=== PATIENT | male | born 1950 | race Hispanic/Latino ===

== ENCOUNTER 2020-01-04 07:01 | Day surgery (SDC) | payer MEDICARE ==
[~2020-01-04 07:01] MED LIST: LIDOCAINE MPF (2%) 20 MG/1 ML VIAL 5 ML ONE; SODIUM CHLORIDE 0.9% 1000 ML 1,000 ML IV SCH
--- NOTE | 2020-01-04 08:09 | Anesthesia Consultation ---
Anesthesia Consult and Med Hx Date of service: 01/04/20 - Airway Anesthetic Teeth Evaluation: Good ROM Head & Neck: Adequate Mental/Hyoid Distance: Adequate Mallampati Class: Class II - Pre-Operative Health Status ASA Pre-Surgery Classification: ASA3 Proposed Anesthetic Plan: MAC - Pulmonary Hx Smoking: No Hx Asthma: No Hx Respiratory Symptoms: No SOB: Yes COPD: No Home Oxygen Therapy: No Hx Pneumonia: Yes Hx Sleep Apnea: No - Cardiovascular System Hx Hypertension: Yes Hx Coronary Artery Disease: Yes (CABG 2003) Hx Heart Attack/AMI: No Hx Angina: No Hx Percutaneous Transluminal Coronary Angioplasty (PTCA): No Hx Cardia Arrhythmia: No Hx Pacemaker: No Hx Internal Defibrillator: No Hx Valvular Heart Disease: No Hx Heart Murmur: No Hx Peripheral Vascular Disease: No - Central Nervous System Hx Neuromuscular Disorder: No Hx Seizures: No CVA: No Hx Back Pain: Yes (nerve stim placement in back) Hx Psychiatric Problems: No - Gastrointestinal Hx Ulcer: No Hx Gastroesophageal Reflux Disease: No - Endocrine Hx Renal Disease: No Hx End Stage Renal Disease: No Hx Cirrhosis: No Hx Liver Disease: No Hx Insulin Dependent Diabetes: No Hx Non-Insulin Dependent Diabetes: No Hx Thyroid Disease: No Hx Hypothyroidism: No Hx Hyperthyroidism: No - Hematic Hx Anemia: No Hx Sickle Cell Disease: No - Other Systems Hx Alcohol Use: Yes (occ.) Hx Substance Use: No Hx Cancer: No Hx Obesity: No
--- NOTE | 2020-01-04 08:10 | Anesthesia Day of Surgery ---
Anesthesia Day of Surgery - Day of Surgery Patient Examined: Yes Patient H&P Reviewed: Yes Patient is NPO: Yes
--- NOTE | 2020-01-04 08:37 | History and Physical Report ---
HISTORY OF PRESENT ILLNESS: This is a 69-year-old white male who has an underlying history of hypertension, status post CABG, who also has a prior history of colon polyps. His last colonoscopy was few years ago. He is being assessed for a repeat colonoscopy to be done. He is otherwise doing well. MEDICATIONS: He is on multiple medications including Welchol, carvedilol, lisinopril, Zetia, amlodipine, Crestor, and gabapentin. ALLERGIES: HAS A HISTORY OF ALLERGY TO ALBUTEROL AND NAPROXEN. SOCIAL HISTORY: Denies history of smoking, alcohol, does have some cardiac issues. He has had his flu shots. PAST MEDICAL HISTORY: Significant for hypertension, coronary artery disease, status post CABG, hyperlipidemia and history of hemorrhoids. PHYSICAL EXAMINATION: GENERAL: He is afebrile. VITAL SIGNS: Blood pressure is 131/85, pulse is 66, height is 5 feet 6 inches, weight is 177 pounds. HEENT: Shows no JVD. LUNGS: Clear to auscultation. CARDIOVASCULAR: Normal. ABDOMEN: Soft. Bowel sounds present. NEUROLOGIC: He is alert and oriented. ASSESSMENT: Colon polyp screening, past history of colon polyps, hypertension, status post CABG. PLAN: To do a colonoscopy at [facility] on 01/04/2020. The patient has been given the Suprep as the prep and he has got a cardiac clearance. JOB# [id number] GRISELDA/NTS
[2020-01-04] MEDS ORDERED: propofoL 200 MG/20 ML VIAL IV ONE ×2 (09:23→09:24)
--- NOTE | 2020-01-04 09:52 | Procedure Note ---
Date of procedure: 01/04/20 Pre-op diagnosis: Colon Polyp Screening/ P/H/O Colon Polyps Post-op diagnosis: other (Solitary,Ascending Colon Polyp/ Few,Left Colon Diverticuli/ Minor,Internal Hemorrhoid) Procedure: Colonoscopy with Cold Biopsy Anesthesia: MAC Surgeon: TALIA SIMENTAL Estimated blood loss: minimal Pathology: list Specimen disposition: to lab Condition: stable Disposition: same day (Avoid aspirin and NSAID for 4 days; otherwise resume home medication. Follow up in 1 to 2 weeks ([phone]). Resume home medication.)
--- NOTE | 2020-01-04 09:55 | Operative Report ---
PROCEDURE: Colonoscopy with biopsy. INDICATIONS: A 69-year-old white male with an underlying history of hypertension, coronary artery disease status post CABG, who has a prior history of colon polyps. Colonoscopy was done to make sure there was not any recurrence of any polyps. PROCEDURE IN DETAIL: The procedure was done after getting informed consent with MAC anesthesia. Initial rectal exam was unremarkable. Instrument was passed through the rectum onto the cecum, which was identified with ileocecal valve and the appendiceal orifice. As the cecum was also examined on the retroverted view, no additional pathology was noted in the cecum. The cecum showed normal mucosa. In the ascending colon, there was a solitary 7-8 mm polyp that was removed by cold biopsy and retrieved. The remaining part of the ascending colon, transverse colon showed normal mucosa. There were a few diverticula noted in the left colon and the rectum showed some minor internal hemorrhoid on the retroverted view. ASSESSMENT: Colon polyp screening, past history of colon polyp. Solitary ascending colon polyp noted, removed by cold biopsy. Few left colon diverticula, minor internal hemorrhoid. The patient will be asked to encourage fiber supplements, avoid aspirin and aspirin-related products for the next 4 days, otherwise resume home medication and follow up in the office in 1-2 weeks' time. The procedure was done in the GI lab with assistance of the GI lab team which included Chelsey MONK as well as Delisa morrow and with the assistance of Anesthesia. JOB# [id number] GRISELDA/NILES
[2020-01-04 13:26] VITALS: BP 125/62
--- NOTE | 2020-01-04 13:29 | Post Anesthesia Evaluation ---
- Post Anesthesia Evaluation Patient Participated: Yes Airway Patent: Yes Stable Respiratory Function: Yes Nausea/Vomiting: No Temp > 96.8F: Yes Pain Manageable: Yes Adequeate Hydration: Yes Anesthesia Complications: No
== END 2020-01-04 10:34 | disposition home or self-care (01) ==
LOC: GIO 07:01
DX: Z12.11 Encounter for screening for malignant neoplasm of colon (principal); D12.2 Benign neoplasm of ascending colon; K64.8 Other hemorrhoids; K57.30 Diverticulosis of large intestine without perforation or abscess without bleeding; I10 Essential (primary) hypertension; G62.9 Polyneuropathy, unspecified; I42.9 Cardiomyopathy, unspecified; I25.10 Atherosclerotic heart disease of native coronary artery without angina pectoris; M19.90 Unspecified osteoarthritis, unspecified site; Z95.1 Presence of aortocoronary bypass graft; Z88.8 Allergy status to other drugs, medicaments and biological substances; Z79.82 Long term (current) use of aspirin; Z96.611 Presence of right artificial shoulder joint; Z90.49 Acquired absence of other specified parts of digestive tract; Z96.612 Presence of left artificial shoulder joint; Z72.89 Other problems related to lifestyle; Z98.890 Other specified postprocedural states
CPT/HCPCS: 45380; 88305; J2704; J7030

== ENCOUNTER 2022-03-05 10:32 | Day surgery (SDC) | payer MEDICARE, BC ==
[~2022-03-05 10:32] MED LIST changes: -LIDOCAINE MPF (2%) 20 MG/1 ML VIAL 5 ML ONE
--- NOTE | 2022-03-05 11:01 | Anesthesia Consultation ---
Anesthesia Consult and Med Hx Date of service: 03/05/22 - Airway Anesthetic Teeth Evaluation: Good ROM Head & Neck: Adequate Mental/Hyoid Distance: Adequate Mallampati Class: Class II Intubation Access Assessment: Probably Good - Pulmonary Exam CTA: Yes - Cardiac Exam Cardiac Exam: RRR - Pre-Operative Health Status ASA Pre-Surgery Classification: ASA2, ASA3 Proposed Anesthetic Plan: MAC - Pulmonary Hx Smoking: No Hx Asthma: No Hx Respiratory Symptoms: No SOB: Yes COPD: No Hx Pneumonia: Yes Hx Sleep Apnea: No - Cardiovascular System Hx Hypertension: Yes Hx Coronary Artery Disease: Yes (CABG 2003; saw customer support advisor 2 months ago) Hx Heart Attack/AMI: No Hx Angina: No Hx Percutaneous Transluminal Coronary Angioplasty (PTCA): No Hx Cardia Arrhythmia: No Hx Pacemaker: No Hx Internal Defibrillator: No Hx Valvular Heart Disease: No Hx Heart Murmur: No Hx Peripheral Vascular Disease: No - Central Nervous System Hx Neuromuscular Disorder: No Hx Seizures: No CVA: No Hx Back Pain: Yes (nerve stim placement in back) Hx Psychiatric Problems: No - Gastrointestinal Hx Ulcer: No Hx Gastroesophageal Reflux Disease: No - Endocrine Hx Renal Disease: No Hx End Stage Renal Disease: No Hx Cirrhosis: No Hx Liver Disease: No Hx Insulin Dependent Diabetes: No Hx Non-Insulin Dependent Diabetes: No Hx Thyroid Disease: No Hx Hypothyroidism: No Hx Hyperthyroidism: No - Hematic Hx Anemia: No Hx Sickle Cell Disease: No - Other Systems Hx Alcohol Use: Yes (occ.) Hx Substance Use: No Hx Cancer: No Hx Obesity: No - Additional Comments Anesthesia Medical History Comments: No GAC. No FHAC.
--- NOTE | 2022-03-05 11:03 | Anesthesia Day of Surgery ---
Anesthesia Day of Surgery - Day of Surgery Patient Examined: Yes Patient H&P Reviewed: Yes Patient is NPO: Yes
[2022-03-05] MEDS ORDERED: LIDOCAINE MPF (2%) 20 MG/1 ML VIAL 5 ML ONE (11:10)
[2022-03-05] MEDS ORDERED: propofoL 200 MG/20 ML VIAL IV ONE ×3 (11:11→11:34)
--- NOTE | 2022-03-05 12:00 | Procedure Note ---
Date of procedure: 03/05/22 Pre-op diagnosis: Anemia/ Dyspepsia/ H/O Colon Polyp Post-op diagnosis: other (Multiple, Small Antral Ulcers/ Gastritis/ Mild to Moderate Erosive Esophagitis/ R/O Celiac disease/ Solitary, Proximal colon Polyp/ Moderate, Left Colon diverticular disease/ Minor,Internakl Hemorrhoids) Procedure: EGD with biopsy/ Colonoscopy with Cold Biopsy Anesthesia: [facility] [place] Surgeon: TLAIA SIMENTAL Estimated blood loss: minimal Pathology: list Specimen disposition: to lab Condition: stable
--- NOTE | 2022-03-05 12:41 | Operative Report ---
DATE OF SURGERY: 03/05/2022 PROCEDURE: Colonoscopy with cold snare polypectomy. INDICATIONS: This is a 71-year-old white male who had an EGD done prior to the colonoscopy because of his anemia, which showed shallow gastric ulcers, gastritis, mild to moderate erosive esophagitis, mild to moderate hiatal hernia. DESCRIPTION OF PROCEDURE: Colonoscopy was done after getting informed consent. Initial rectal examination was unremarkable. The instrument was passed through the rectum onto the cecum, which was identified with ileocecal valve and appendiceal orifice. Visualization was fair to good. Mucosa was washed with copious amounts of water. In the distal cecum and proximal ascending colon, there was a 7-8 mm sessile polyp noted that was removed by cold snare polypectomy and retrieved. The remaining part of the proximal and the transverse colon showed normal mucosa. There was moderate diverticular disease noted in the left colon, some of which were quite deep and the rectum showed some minor internal hemorrhoid on the retroverted view. There was minimal bleeding from the polypectomy site and no complications associated with the procedure. ASSESSMENT: History of colon polyp, prior history of colon polyp of the tubular adenoma type, solitary ascending colon polyp removed by cold snare polypectomy. Moderate left colon diverticular disease, minor internal hemorrhoids. The patient will be asked to avoid aspirin and aspirin-related products for the next 5 days. Encouraged to take fiber supplements, treated with PPI because of the EGD findings of gastric ulcer, gastritis and esophagitis. Otherwise, resume home medication and follow up in the office in 1-2 weeks' time. Procedure was done in the GI lab with assistance of the GI lab team, which included the GI nurse, the building tech and with assistance of anesthesia. TID: [id number] RECEIPT: [id number] GRISELDA/VIRGIL
--- NOTE | 2022-03-05 12:48 | Operative Report ---
DATE OF SURGERY: 03/05/2022 PROCEDURE PERFORMED: EGD with biopsy. INDICATIONS: This is a 71-year-old white male who has underlying history of anemia and dyspepsia. He has a history of taking NSAID. EGD was done to make sure there was not any significant upper GI pathology present. DESCRIPTION OF PROCEDURE: Procedure was done after getting informed consent with MAC anesthesia. The instrument was passed through the hypopharynx into the esophagus, which showed some [id number] erosive esophagitis. Photodocumentation and biopsy was done to assess for the severity of the erosive esophagitis. The stomach showed multiple antral shallow ulcers as well as gastritis. Pylorus was patent. Duodenum in the first and second portion appeared normal. Biopsy was done from the second part to rule out for possible celiac disease. The stomach showed a [id number] hiatal hernia on the retroverted view and biopsy was done from the gastric antrum from the area of the ulceration as well as from the gastric body and angular incisura for H. pylori and atrophic gastritis. There was minimal bleeding associated with the procedure. No complications associated with the procedure. ASSESSMENT: Anemia, dyspepsia, shallow gastric ulcer, gastritis, mild to moderate erosive esophagitis, mild to moderate hiatal hernia, rule out celiac disease. PLAN: To treat the patient with PPI, have the patient avoid aspirin and aspirin-related products. Otherwise, resume previous medication and to do a colonoscopy for further assessment. Procedure was done in the GI lab with assistance of the GI lab team, which included the GI nurse, the train control electronic technician and with assistance of Anesthesia. TID: [id number] RECEIPT: [id number] GRISELDA/SENAIT
[2022-03-05 13:25] VITALS: BP 133/64
--- NOTE | 2022-03-05 16:48 | Post Anesthesia Evaluation ---
- Post Anesthesia Evaluation Patient Participated: Yes Airway Patent: Yes Stable Respiratory Function: Yes Nausea/Vomiting: No Temp > 96.8F: Yes Pain Manageable: Yes Adequeate Hydration: Yes Anesthesia Complications: No Block Receding Appropriately: Not Applicable Patient on Ventilator: No
== END 2022-03-05 13:05 | disposition home or self-care (01) ==
LOC: GIO 10:32
DX: D64.9 Anemia, unspecified (principal); K57.30 Diverticulosis of large intestine without perforation or abscess without bleeding; K64.8 Other hemorrhoids; R10.13 Epigastric pain; K44.9 Diaphragmatic hernia without obstruction or gangrene; K20.90 Esophagitis, unspecified without bleeding; K29.80 Duodenitis without bleeding; K31.89 Other diseases of stomach and duodenum; D12.0 Benign neoplasm of cecum; K29.70 Gastritis, unspecified, without bleeding; G62.9 Polyneuropathy, unspecified; I25.10 Atherosclerotic heart disease of native coronary artery without angina pectoris; E78.00 Pure hypercholesterolemia, unspecified; I10 Essential (primary) hypertension; M19.90 Unspecified osteoarthritis, unspecified site; Z96.612 Presence of left artificial shoulder joint; Z86.010 Personal history of colon polyps; Z88.8 Allergy status to other drugs, medicaments and biological substances; Z79.899 Other long term (current) drug therapy; Z79.82 Long term (current) use of aspirin; Z95.1 Presence of aortocoronary bypass graft; Z87.01 Personal history of pneumonia (recurrent); Z90.49 Acquired absence of other specified parts of digestive tract; Z96.611 Presence of right artificial shoulder joint; Z96.651 Presence of right artificial knee joint; Z98.890 Other specified postprocedural states
CPT/HCPCS: 43239; 45385; 88305; 88342; J2704; J7030